=== PATIENT | female | born 1945 | race Caucasian/White ===

== ENCOUNTER → 2022-10-25 08:35 | Outpatient (CLI) | payer OTHER, SELFPAY ==
--- NOTE | ~2022-10-25 | MR_ITS ---
MRI of the right knee Clinical history: Lateral meniscal tear Technique: Coronal proton density and proton density-weighted images, sagittal proton-density and T2 fat-sat images, and axial proton-density fat-saturated images were acquired. Findings: Anterior and posterior cruciate ligament are intact. Medial collateral ligament and the lat eral collateral ligament complex are intact. Popliteus tendon is intact. Medial and lateral menisci are intact, without evidence of tear. Articular cartilage is well preserved the medial lateral compartments. Femoral trochlear cartilage de monstrates moderate thinning along the medial aspect. There is moderate to high-grade chondromalacia about the patellar apex. Tiny tricompartmental osteophytes are present. There is a probable 5 mm loos e body posterior to the posterior horn of the medial meniscus (sagittal image 22). Extensor mechanism is intact. No significant joint effusion or Eli's cyst. Impression: Mild tricompartmental osteoarthritic changes, as detailed above, worst in the patellofemoral compartm ent. Probable 5 mm loose body posterior to the posterior horn of the medial meniscus. No meniscal tear identified. Reviewed, dictated and finalized at location M. S DEPARTMENT MANAGER Impression: Mild tricompartmental osteoarthritic changes, as detailed above, worst in the p atellofemoral compartment. Probable 5 mm loose body posterior to the posterior horn of the medial meniscus . No meniscal tear identified.
== END ==
PROVIDERS: PCP Internal Medicine; Visit Provider Orthopaedic Surgery
DX: S83.271D Complex tear of lateral meniscus, current injury, right knee, subsequent encounter (principal); X58.XXXD Exposure to other specified factors, subsequent encounter; M17.11 Unilateral primary osteoarthritis, right knee
CPT/HCPCS: 73721

== ENCOUNTER → 2023-08-08 10:30 | Outpatient (CLI) | payer OTHER, SELFPAY ==
--- NOTE | ~2023-08-08 | MR_ITS ---
MRI of the lumbar spine Clinical History: Radiculopathy Technique: Axial T2-weighted images, and sagittal T1-weighted, T2-weighted, and T2 fat-sat images wer e acquired. Findings: There is probable left unilateral L4 pars interarticularis defects. There is 3 mm anterolis thesis of L4 over L5. No acute fracture seen. No suspicious bone marrow signal abnormality seen. At L1-L2, there is no disc bulge or herniation. There is mild facet hypertrophy. No central canal doug nosis or neural foraminal narrowing. At L2-L3, there is no disc bulge or herniation. There is moderate facet arthropathy. No central canal stenosis or neural foraminal narrowing. At L3-L4, there is minimal disc bulge. There is moderate facet arthropathy. No central canal stenosis or neural foraminal narrowing. At L4-L5, there is disc bulge and severe facet arthropathy, with apparent posterior decompression. Th ere is mild central canal stenosis. There is severe right neural foraminal narrowing, and moderate to severe left neural foraminal narrowing. At L5-S1, there is disc bulge and moderate to severe facet arthropathy. No joseph central canal stenos is. There is moderate bilateral neural foraminal narrowing. Paravertebral soft tissues are unremarkable. Impression: 3 mm anterolisthesis of L4 over L5, probable left unilateral L5 pars interarticularis defect. Moderate to advanced degenerative spondylosis at L4-L5 and L5-S1, as detailed above. Probable prior posterior decompression at L4. Reviewed, dictated and finalized at [facility]. [facility] [employer]ICAL NURSE SPECIALIST Impression: 3 mm anterolisthesis of L4 over L5, probable left unilateral L5 pars interartic ularis defect. Moderate to advanced degenerative spondylosis at L4-L5 and L5-S1, as detailed a thaddeus. Probable prior posterior decompression at L4.
== END ==
PROVIDERS: PCP Anesthesiology; Visit Provider Anesthesiology
DX: M54.16 Radiculopathy, lumbar region (principal); M43.16 Spondylolisthesis, lumbar region
CPT/HCPCS: 72148

== ENCOUNTER 2024-05-26 08:00 | Emergency (ER) | payer OTHER, SELFPAY ==
--- NOTE | ~2024-05-26 | CT_ITS ---
EXAMINATION: CT abdomen pelvis w con DATE: 05/26/2024 11:41 INDICATION: Lower abdominal pain TECHNIQUE: Computed tomography (CT) of the abdomen and pelvis was performed with 100 cc Omnipaque 350 intravenous contrast. The dose-length product was 474.61 mGy-cm. Automated exposure control and iter ative reconstruction technique were employed. COMPARISON: None. FINDINGS: There is dependent atelectasis. Heart size normal. No significant pleural or pericardial ef fusion. 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 There is acute diverticulitis of the sigmoid colon. No evidence for perforation or abscess. Nonobstructive bowel gas pattern. No lymphadenopathy. The liver, spleen, pancreas, adrenal glands and kidneys are unremarkable. No free air. No abscess. St atus post cholecystectomy with expected prominence of the bile ducts. Moderate lower thoracic and lum bar spondylosis. IMPRESSION: 1. Acute uncomplicated sigmoid diverticulitis. 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 Reviewed, dictated and finalized at location B.
[2024-05-26 08:17] VITALS: BP 162/63; PULSE 92; RESP 16; TEMP 36.6; O2SAT 100
--- NOTE | 2024-05-26 10:36 | ED.ABDPAIN ---
HPI - Abdominal Pain General Chief Complaint: Abdominal Pain Stated Complaint: abd pain Time Seen by Provider: 05/26/24 10:18 History of Present Illness HPI narrative: 78-year-old female present to the emergency department for evaluation for lower abdominal discomfort and constipation. Patient states her last bowel movement was on . Patient states she has had increased rectal pressure and has passed a small amount of stool. Patient states she did take a stool softener last night at 10:00 p.m. but has had no results. Patient states that she has been passing some soft liquid stool. Related Data Allergies Allergy/AdvReac Type Severity Reaction Status Date / Time No Known Allergies Allergy Unknown Verified 05/26/24 08:04 Review of Systems Review of Systems: All systems reviewed & are unremarkable except as noted in HPI and below Exam Narrative: APPEARANCE: Well appearing, no pain, no distress, well-nourished. HEAD: normocephalic, atraumatic. EYES: PERRLA/EOMI, conjunctivae clear. NOSE: Normal no drainage EARS:TMS clear with good light reflex. THROAT: Pharynx clear, no exudate. NECK: Supple. No adenopathy, no masses. RESPIRATORY: Airway patent, respirations nonlabored. Clear to auscultation bilaterally, no rales, rhonchi, wheezing. CARDIOVASCULAR: Regular rate and rhythm without murmurs rubs or gallops. ABDOMINAL: Soft, nontender, nondistended, normal bowel sounds MUSCULOSKELETAL: Moves all extremities. Strength/ROM intact, No edema, No calf tenderness. NEURO: Alert. Cranial nerves II through XII intact. Good gait. Good coordination SKIN: Warm, dry. Normal Color Rectal exam: Hemorrhoids- nonthrombosed, no stool in the vault, Hemoccult negative Course Course Emergency Course: Patient was discharged home with antibiotics for uncomplicated diverticulitis Vital Signs Vital signs: Vital Signs Temperature 97.8 F 05/26/24 08:17 Pulse Rate 92 05/26/24 08:17 Respiratory Rate 16 05/26/24 08:17 Blood Pressure 162/63 H 05/26/24 08:17 Pulse Oximetry 100 05/26/24 08:17 Temperature 98.0 F 05/26/24 10:47 Pulse Rate 75 05/26/24 13:46 Respiratory Rate 20 05/26/24 13:46 Blood Pressure 133/89 05/26/24 13:46 Pulse Oximetry 97 05/26/24 13:46 Oxygen Delivery Room Air 05/26/24 10:47 MDM - Abdominal Pain MDM Narrative Medical decision making narrative: 78-year-old female presents emergency department for evaluation for lower abdominal pain. Patient is afebrile but does have a leukocytosis of 12.5 and hemoglobin of 14.1. Patient has no significant abnormalities on her CMP lipase is normal. CT abdomen pelvis does show uncomplicated diverticulitis. Patient was updated on the results of the workup patient states he does feel improved and is comfortable the plan for discharge home. Patient was started on Augmentin the emergency department discharged home on Augmentin. Patient was encouraged close follow-up with her primary care physician along with GI. Patient was also educated on reasons to return to the emergency department. On re-examination patient has a soft nontender abdomen. Differential Diagnosis Differential diagnosis: Likely abdominal pain, acute appendicitis, calculus of kidney, constipation, diverticulitis, gastroenteritis, pancreatitis and small bowel obstruction Lab Data Attestation: I reviewed the patient's lab results. 05/26/24 10:59 05/26/24 10:59 Labs: Lab Results 05/26/24 Range/Units 10:59 WBC 12.5 H (4.5-10.0) K/mm3 RBC 4.29 (4.2-5.4) M/mm3 Hgb 14.1 (12.0-15.0) g/dL Hct 41.4 (37.0-47.0) % MCV 96.5 (80-100) fl MCH 32.9 (26-34) pg MCHC 34.1 (32-36) g/dl RDW 12.7 (11.5-14.5) % Plt Count 200 (150-375) k/mm3 MPV 9.5 (7.4-10.4) fl Immature Gran % (Auto) 0.3 (0-0.5) % Neut % (Auto) 78.0 H (45.5-73.1) % Lymph % (Auto) 13.9 L (18.3-44.2) % Chase % (Auto) 7.2 (2.6-8.5) % Eos % (Auto) 0.3 (0-
[2024-05-26 10:47] VITALS: BP 142/58; PULSE 77; RESP 20; TEMP 36.7; O2SAT 98
[2024-05-26 11:09] LABS: Basophils Percent Auto 0.3 % (0.2-1.2); Eosinophils Percent Auto 0.3 % (0-4.4); Hematocrit 41.4 % (37.0-47.0); Hemoglobin 14.1 g/dL (12.0-15.0); Immature Granulocyte Absolute 0.04 K/mm3 (0.00-0.031); Immature Granulocyte Percent A 0.3 % (0-0.5); Lymphocytes Absolute Auto 1.73 K/mm3 (0.9-3.2); Lymphocytes Percent Auto 13.9 % (18.3-44.2); Mean Corpuscular HGB Conc 34.1 g/dl (32-36); Mean Corpuscular Hemoglobin 32.9 pg (26-34); Mean Corpuscular Volume 96.5 fl (80-100); Mean Platelet Volume 9.5 fl (7.4-10.4); Monocytes Absolute Auto 0.9 K/mm3 (0.1-0.6); Monocytes Percent Auto 7.2 % (2.6-8.5); Neutrophils Absolute Auto 9.7 K/mm3 (1.3-6.7); Platelet Count Result 200 k/mm3 (150-375); Red Blood Count 4.29 M/mm3 (4.2-5.4); Red Cell Distribution Width 12.7 % (11.5-14.5); White Blood Count 12.5 K/mm3 (4.5-10.0)
[2024-05-26 11:19] LABS: Alanine Aminotransferase 20 U/L (6-35); Albumin Level 4.5 g/dL (3.5-5.1); Alkaline Phosphatase 66 U/L (38-126); Anion Gap 7 mmol/L (4-12); Aspartate Amino Transferase 36 U/L (14-36); Blood Urea Nitrogen 13 mg/dL (7-17); Carbon Dioxide 28 mmol/L (22-30); Chloride 102 mmol/L (98-107); Estimated CRCL calculation 53 ml/min; Estimated Glomerular Filt Rate > 60; Glucose 111 mg/dL (65-110); Lipase 63 U/L (23-300); Potassium 4.4 mmol/L (3.4-5.0); Sodium 137 mmol/L (137-145)
[2024-05-26 11:20] LABS: INR 1.1; Lactic Acid Reflex 1.1 mmol/L (0.7-2.0); Partial Thromboplastin Time 29.5 Seconds (22.3-36.8); Prothrombin Time 14.4 Seconds (11.1-14.7)
[2024-05-26] MEDS: AMOXICILLIN/CLAVULANATE K 875-125 MG TAB 1 TABLET PO (13:37)
[2024-05-26 13:46] VITALS: BP 133/89; PULSE 75; RESP 20; O2SAT 97
== END 2024-05-26 13:50 | disposition home or self-care (01) ==
PROVIDERS: Emergency Provider Emergency Medicine; PCP Anesthesiology
DX: K57.32 Diverticulitis of large intestine without perforation or abscess without bleeding (principal); I71.43 Infrarenal abdominal aortic aneurysm, without rupture
CPT/HCPCS: 36415; 74177; 80053; 83605; 83690; 85025; 85610; 85730; 99284; A9270; Q9967